=== PATIENT | male | born 1985 | race Caucasian/White ===

== ENCOUNTER 2018-02-02 03:15 | Emergency (ER) | payer MEDICAID ==
[~2018-02-02] VITALS: Ht 177.8 cm; Wt 127.3 kg
[2018-02-02 03:21] VITALS: Ht 177.8 cm; Wt 127.3 kg
[2018-02-02] MEDS ORDERED: LEXAPRO5 MG (03:24)
[2018-02-02] MEDS ORDERED: ALAVERT10 MG/TAB (03:24)
[2018-02-02] MEDS ORDERED: INDERAL10 MG (03:24)
[2018-02-02] MEDS ORDERED: CYCLOBENZAPRINE10 MG PO (04:37)
[2018-02-02] MEDS ORDERED: AUGMENTIN 875-11 TAB PO (04:37)
[2018-02-02] MEDS ORDERED: ACETAMINOPHEN500 M1 PO (04:37)
[2018-02-02 05:26] VITALS: BP 128/81
== END 2018-02-02 05:26 | disposition home or self-care (01) ==
LOC: D.ER 03:15
DX: S61.411A Laceration without foreign body of right hand, initial encounter (principal); W22.01XA Walked into wall, initial encounter; Y93.89 Activity, other specified; Y92.019 Unspecified place in single-family (private) house as the place of occurrence of the external cause; I10 Essential (primary) hypertension; F17.200 Nicotine dependence, unspecified, uncomplicated